=== PATIENT | female | born 1945 | race Caucasian/White ===

== ENCOUNTER 2017-04-03 15:59 | Emergency (ER) | payer OTHER ==
[~2017-04-03] VITALS: Ht 144.8 cm; Wt 68.0 kg
[2017-04-03 17:14] LABS: URINE BILIRUBIN NEGATIVE (Negative); URINE BLOOD NEGATIVE (Negative); URINE CLARITY CLEAR; URINE COLOR YELLOW; URINE GLUCOSE-RANDOM* NEGATIVE (Negative); URINE KETONES TRACE (Negative); URINE LEUKOCYTES NEGATIVE (Negative); URINE NITRITE NEGATIVE (Negative); URINE PROTEIN (DIPSTICK) NEGATIVE (Negative); URINE SPECIFIC GRAVITY 1.025 (1.005-1.035); URINE UROBILINOGEN 0.2 E.U./dl (0.2-1.0)
[2017-04-03 18:48] LABS: ABSOLUTE NEUTROPHILS 5.4 thou/uL (1.4-8.2); BASOPHILS 0.7 % (0.0-2.0); HEMATOCRIT 36.5 % (37.0-47.0); HEMOGLOBIN 12.4 gm/dL (12.0-15.0); LYMPHOCYTES 17.1 % (24.0-44.0); MCH 32.2 pg (26.0-34.0); MCV 94.9 fL (80.0-100.0); MONOCYTES 8.1 % (1.0-8.0); PLATELET COUNT 250 thou/uL (150-400); POLYS 71.1 % (36.0-66.0); RBC 3.85 mil/uL (4.20-5.00); RDW 13.1 % (10.5-14.5); WBC 7.6 thou/uL (4.0-11.0)
[2017-04-03 18:49] VITALS: BP 120/56
[2017-04-03 18:56] LABS: CALCIUM 8.7 mg/dL (8.5-10.1); CREATININE 0.7 mg/dL (0.6-1.0); POTASSIUM 3.6 mmol/L (3.5-5.1)
[2017-04-03 19:02] LABS: ALBUMIN 3.3 g/dL (3.4-5.0); TOTAL BILIRUBIN 0.3 mg/dL (<0.1-1.0)
== END 2017-04-03 20:00 | disposition home or self-care (01) ==
LOC: ER 15:59
PROVIDERS: Nurse Practitioner Family
DX: K59.00 Constipation, unspecified (principal); Z88.5 Allergy status to narcotic agent

== ENCOUNTER 2017-04-17 16:08 | Inpatient (IN) | payer OTHER ==
[~2017-04-17] VITALS: Ht 147.3 cm; Wt 68.0 kg
--- NOTE | ~2017-04-17 | EKG ---
[place] [address] [facility] [place] [address] ELECTROCARDIOGRAM REPORT Name: JF TOWNSEND Room #: 402-P ADM IN M.R.#: [id number] Admission: 04/17/17 Attend Phys: Kevin Gonzalez Discharge: Date of : 49 Report #: [id number] THIS REPORT FOR: //name// [facility] Test Date: 2017-04-24 Test Time: 12:52:53 Pat Name: JF TOWNSEND Department: Room: 402 Gender: F Lab Animal Technician: Wayne BASURTO : 1945 Requested By: Kevin Gonzalez Order Number: [id number] MD: Olvin King Measurements Intervals [place] Rate: 83 P: 7 SD: 146 QRS: -26 QRSD: 94 T: 11 QT: 371 QTc: 436 Interpretive Statements Sinus rhythm Borderline left axis deviation Poor R wave progression No previous ECG available for comparison Electronically Signed On 04-25-2017 14:33:20 CASTING MACHINE SET UP OPERATOR by Olvin iKng [email or web address] <ELECTRONICALLY SIGNED> By: Olvni King MD, [facility] 04/25/17 1433 1251 51 Olvin King MD, FACC /EPI
--- NOTE | ~2017-04-17 | HC ---
[facility] [place] [address] CONSULTATION Name: JF TOWNSEND Room #: 402-P ADM IN M.R.#: [id number] Admission: 04/17/17 Attend Phys: Kevin Gonzalez Discharge: Date of : 49 Report #: [id number] THIS REPORT FOR: //name// CC: Daya Joshi DATE OF SERVICE: 04/23/2017 REASON FOR CONSULTATION: I was asked to evaluate concerning sigmoid diverticulitis with abscess and colovaginal fistula. HISTORY OF PRESENT ILLNESS: The patient was a 71-year-old with previous history of diverticular disease. She has noticed a change in her bowel habits over the last month or so. Had increased abdominal pain. Has noticed drainage from her vagina. She initially thought this was urine, but in retrospect appears to be vaginal drainage. Hospitalized to the Emergency Room where CT scan shows evidence of sigmoid diverticulitis with near total obstruction. She has evidence of a fistula into the vaginal tract. Three small abscesses also identified. We have no microbiology available. PAST MEDICAL HISTORY: Oxygen-dependent COPD, hypothyroidism, previous diverticulitis, colon polyposis, depression, tubal ligation, Kuhn marcus placement. She has had a colonoscopy several years ago. ALLERGIES: MORPHINE. MEDICATIONS: As noted on MAY, now on Zosyn. FAMILY HISTORY: Noncontributory. SOCIAL HISTORY: Past smoker. No significant alcohol intake. Works as a cardiology physician. REVIEW OF SYSTEMS: Denies any cough or sputum production. No nausea or vomiting. Her abdominal pain is markedly improved. She is on 2 liters of oxygen per nasal cannula. No dysuria. She has had minimal stool output. PHYSICAL EXAMINATION: VITAL SIGNS: Afebrile and hemodynamically stable. GENERAL: She is alert and cooperative and pleasant, no acute distress. She was on 2 liters of oxygen per nasal cannula. HEENT: Unremarkable. NECK: Supple. No adenopathy. CHEST: Clear. HEART: Regular. [facility] [address] [place] [address] CONSULTATION Name: JF TOWNSEND Room #: [facility] IN ..#: [id number] Admission: 04/17/17 Attend Phys: Kevin Gonzalez Discharge: Date of : 49 Report #: [id number] ABDOMEN: Mildly protuberant, soft and nontender. No hepatosplenomegaly or mass appreciated. GENITAL AND RECTAL: Not performed. EXTREMITIES: Unremarkable. NEUROLOGIC: Nonfocal. LABORATORY STUDIES: CT scan as noted above with 3 small fluid collections, one 2.6 x 1.9 cm, another 1.3 cm diameter, another 2.5 x 2.5 cm. Rectal contrast study was unable to inject through the obstructing colon. No fistulous tract identified. Vaginal fistulogram identified the fistula to the colon. Sodium 141, potassium 3.5, bicarbonate 29, creatinine 0.8. Liver function test normal. Hemoglobin 11, platelet count 272,000, white count 11.2. Urinalysis was positive for wbc's and bacteria. Blood cultures are pending. Urine culture showed 50,000 normal krishan. IMPRESSION: A 71-year-old with: 1. Sigmoid diverticulitis and subsequent pelvic abscesses along with a colovaginal fistula. 2. Chronic obstructive pulmonary disease, oxygen dependent. RECOMMENDATIONS: We will have a PICC catheter placed. Would continue with Zosyn outpatient infusion for several weeks until we can get the inflammatory reaction down in resolution of the abscesses. Then would plan to come back with colorectal surgery for sigmoid resection and takedown of the colovaginal fistula. <ELECTRONICALLY SIGNED> By: Nhan Montano MD 04/24/17 0927 1213 0153 Nhan Montano MD /nt
--- NOTE | ~2017-04-17 | HC ---
[facility] [place] [address] CONSULTATION Name: JF TOWNSEND Room #: 410-P ADM IN M.R.#: [id number] Admission: 04/17/17 Attend Phys: Mario Martel MD Discharge: Date of : 49 Report #: [id number] THIS REPORT FOR: //name// CC: Daya Joshi DATE OF SERVICE: 04/18/2017 REASON FOR CONSULTATION: Abdominal pain. CONSULTING PHYSICIAN: Mario Martel MD. HISTORY OF PRESENT ILLNESS: This is a 71-year-old female with history of diverticulitis, was admitted by the Emergency Room with left lower quadrant pain and right lower quadrant pain ongoing for the past 3-4 weeks. She rates the pain as 8/10. She was seen for similar complaints in the ER 2 weeks ago. Lab work and abdominal x-ray were done that did not show any evidence of bowel obstruction. She was discharged home with MiraLax for suspected constipation. She has an appointment with a GI physician 4 days from now, but is unaware of which GI doctor. She could not wait that long and hence got admitted to the hospital. She underwent a CT scan of the abdomen and pelvis that showed mural thickening of the proximal to mid sigmoid colon approximately 12 cm length with surrounding inflammation and several perisigmoid abscesses measuring 1.8 x 2.8 cm in size. There are a couple of diverticula in the vicinity, but no clear evidence of diverticulitis. From GI standpoint, she reports she gets her care at [facility]. She says her last colonoscopy was approximately 4 years ago. She was recommended to have a colonoscopy in 2019. She denies any rectal bleeding, but reports loose stools. Her main complaint is left lower quadrant and right lower quadrant pain. It is described as sharp intense pain with radiation to her groin. No weight loss reported. REVIEW OF SYSTEMS: As noted in HPI. Otherwise 10 review of systems obtained and negative. PAST MEDICAL HISTORY: 1. History of diverticulitis. 2. UTI. 3. Tubal ligation. 4. COPD. 5. Hypothyroidism. 6. Depression. [facility] [address] [place] [address] CONSULTATION Name: JF TOWNSEND Room #: 410-P [facility] IN ..#: [id number] Admission: 04/17/17 Attend Phys: Mario Martel MD Discharge: Date of : 49 Report #: [id number] 7. Back surgery. ALLERGIES: Reviewed and noted. MEDICATIONS: Reviewed and noted. SOCIAL HISTORY: Denies tobacco, alcohol or illegal drug use. FAMILY HISTORY: There is no family history of colorectal cancer or GI malignancies, PHYSICAL EXAMINATION: GENERAL: Alert and oriented to time, place and person; cooperative, appears in moderate distress due to pain. VITAL SIGNS: Temperature 99.2 degrees Fahrenheit, heart rate 76, respiration 18, blood pressure 160/71 and oxygen saturation 95% on 2 liters nasal cannula. HEAD: Normocephalic, atraumatic. EYES: Pupils equal, round, reactive to light and accommodation. Extraocular movements intact. No pallor, no icterus. NECK: Supple, midline trachea, thyroid palpable. CARDIOVASCULAR: Regular rate and rhythm. No murmurs. RESPIRATORY: Chest clear to auscultation bilaterally. ABDOMEN: Soft, tender to palpation right lower quadrant suprapubic region and left lower quadrant. Bowel sounds are hypoactive. EXTREMITIES: No cyanosis, clubbing or edema. SKIN: Warm and dry. No rashes present, NEUROLOGIC: Cranial nerves 2-12 grossly intact. No focal deficits. LABORATORY DATA: White count 10.6, hemoglobin 11.8, platelet 298. Normal basic metabolic profile, creatinine of 0.8. Normal liver function tests. Lipase is normal at 63. CT abdomen and pelvis results noted above in HPI. DIAGNOSTIC IMPRESSION AND PLAN: 1. Colitis with abscess. Suspicious for diverticulitis, complicated by an abscess (history of diverticulitis in 2008). Agree with antibiotic treatment in the form of Zosyn. Await surgical consultation to decide whether the patient needs conservative approach with antibiotic treatment and assess for response of these small abscesses with repeat CT versus aggressive approach with IR-guided drainage or surgical drainage. Continue antibiotic treatment in the meantime. She warrants a colonoscopy as an outpatient in 6-8 weeks from now. 2. Sigmoid abscess. Again, I think this is likely secondary to diverticulitis. Antibiotic treatment as above. Await surgical input. [address] [address] CONSULTATION Name: KRISTIANJF J Room #: 410-P [facility] IN M.R.#: [id number] Admission: 04/17/17 Attend Phys: Mario Martel MD Discharge: Date of : 49 Report #: [id number] Thank you for allowing me to participate in the care of the patient. <ELECTRONICALLY SIGNED> By: Giancarlo Pereyra MD 04/19/17 1046 1555 0404 Giancarlo Pereyra MD /nt
--- NOTE | ~2017-04-17 | HC ---
[facility] [place] [address] CONSULTATION Name: JF TOWNSEND Room #: 410-P ADM IN M.R.#: [id number] Admission: 04/17/17 Attend Phys: Mario Martel MD Discharge: Date of : 49 Report #: [id number] THIS REPORT FOR: //name// CC: Daya Joshi MD DATE OF SERVICE: 04/18/2017 REASON FOR CONSULTATION: Abdominal pain, intra-abdominal abscess. HISTORY OF PRESENT ILLNESS: This is a friendly 71-year-old female patient who was seen in the [place] Emergency Room with lower abdominal pain, fever, chills, nausea and vomiting. She has had difficulty with abdominal pain, mostly in her left lower quadrant over the past 3-4 weeks. She initially thought this was secondary to constipation and was actually seen in the Emergency Room 2 weeks ago, but dismissed home. Her primary care physician had recommended that she come to the Emergency Room due to thin caliber stools. The patient took MiraLax and has had no significant change in her pain until being seen yesterday with worsened pain. She has vomited several times, but has also been passing flatus. Her last bowel movement was last night. She does note possible fecaluria, although she has a difficult time ascertaining this. She does pass urine as well as stool currently. She denies pneumaturia. She is uncertain of when her last colonoscopy was. However, she was told her next colonoscopy is to take place in 2019. She does have a history of polyps and was admitted with diverticulitis [address] in the Emergency Room showed marked mural thickening of the proximal to mid sigmoid colon measuring 12 cm in length with surrounding inflammatory changes and perisigmoid abscesses measuring up to 1.8 x 2.8 cm. Diverticula were also seen within this loop of colon; however, they did not appear to be particularly inflamed. The abscesses were not felt to be amenable to percutaneous drainage as they were small and closely associated with bowel. She also had leukocytosis. I have been asked to see the patient for further evaluation and treatment. PAST MEDICAL HISTORY: Significant for COPD with use of home oxygen, hypothyroidism, previous diverticulitis, colonic polyps and depression. PAST SURGICAL HISTORY: Kuhn rods placed at 14 years old, bilateral tubal ligation. MEDICATIONS: Include fluticasone/vilanterol, Synthroid and Caltrate (please see electronic medical record for dosing details). She has been placed on Zosyn and is receiving p.r.n. medications as well. ALLERGIES: MORPHINE. [address] [address] CONSULTATION Name: RASHIDBENJF Bobby Room #: 410-P [facility] IN M.R.#: [id number] Admission: 04/17/17 Attend Phys: Mario Martel MD Discharge: Date of : 49 Report #: [id number] FAMILY HISTORY: Reviewed and noncontributory to this hospitalization. Her father did have heart disease. SOCIAL HISTORY: The patient denies use of illicit drugs. She quit smoking in 2008. She drinks alcohol socially. REVIEW OF SYSTEMS: As per history of present illness. In addition, GENERAL: The patient reports fever and chills, but denies this now. Denies unintentional weight loss. HEENT: Denies changes in taste, vision, hearing, or smell. RESPIRATORY: Denies worsening shortness of breath, has a history of COPD. CARDIOVASCULAR: Denies chest pain or palpitations. GASTROINTESTINAL: As per history of present illness. GENITOURINARY: Denies dysuria, urgency, increased urinary frequency or hematuria. She is uncertain if she is passing stool per urine. Denies pneumaturia. MUSCULOSKELETAL: Denies myalgia or arthralgia. Has a history of Kuhn rods in her back. NEUROLOGIC: Denies headaches, numbness or tingling. PSYCHIATRIC: Denies suicidal ideations or anxiety, has a history of depression. SKIN AND INTEGUMENTARY: Denies new skin lesions, rashes or moles. ENDOCRINE: Denies polydipsia, polyuria, heat or cold intolerance. HEMATOLOGIC: Denies easy bleeding, bruising or anemia. All other review of systems is negative. PHYSICAL EXAMINATION: VITAL SIGNS: Temperature 99.2, blood pressure 122/71, pulse 76, respirations 18. GENERAL: This is an obese 71-year-old female patient in no acute distress. HEENT: Atraumatic, normocephalic with moist mucosal membranes. Oropharynx is clear. She has no scleral icterus. NECK: Supple, no appreciable lymphadenopathy. Trachea is midline. CHEST: Clear bilaterally. CARDIOVASCULAR: Regular rate and rhythm. ABDOMEN: Soft and mildly tender to palpation in the lower abdomen/pelvis with no rebound or guarding. No palpable masses, no appreciable hernias. GENITOURINARY: Normal external female genitalia. RECTAL: Shows chronic external hemorrhoids. No anal fissures or fistulae. No palpable masses. No significant tenderness to palpation. EXTREMITIES: No clubbing or cyanosis. NEUROLOGIC: Cranial nerves 2-12 grossly intact. PSYCHIATRIC: Normal mood and affect. SKIN AND INTEGUMENTARY: No acute inflammatory changes, rashes or lesions are present. LABORATORY DATA: CBC this morning shows a white blood cell count of 10.6 (14.8 [facility] [place] [address] CONSULTATION Name: JF TOWNSEND Room #: 410-P ADM IN M.R.#: [id number] Admission: 04/17/17 Attend Phys: Mario Martel MD Discharge: Date of : 49 Report #: [id number] at admission last night), hemoglobin 11.8, hematocrit 35.0 and platelets 298. Electrolytes show sodium of 141, potassium 3.5, chloride 103, CO2 of 29, BUN 13, creatinine 0.8 and glucose 97. Liver function tests from last night were normal. Lipase was normal. Albumin was low at 3.1. Urinalysis showed trace protein, 3+ blood, 1+ ketones, 2+ leukocyte esterase, negative nitrites and many urine bacteria. RADIOLOGIC STUDIES: CT abdomen and pelvis findings are as noted above. The patient had mild hydroureteronephrosis to the level of the inflamed proximal sigmoid colon. No free intraperitoneal air was seen. Other findings are as noted above. IMPRESSION AND PLAN: This is a 71-year-old female patient with a history of chronic obstructive pulmonary disease, hypothyroidism, diverticulitis and colonic polyps who has colitis of the sigmoid colon (12 cm long segment) with diverticula present; however, the diverticula are not significantly inflamed. This is felt to represent colitis, which may be infectious, inflammatory, or secondary to ischemia, but may also represent diverticulitis. 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 She does have a urinary tract infection as well. We discussed the differential diagnoses of her colitis. My recommendation is to continue IV antibiotics and repeat her CT scan in the next couple of days with oral contrast to be given the day prior to the study to allow the contrast to pass to the sigmoid colon. She may also require a urology consult for cystoscopy. The patient expressed understanding of the plan. I will follow along with serial abdominal exams as well as labs and x-rays as necessary. I sincerely appreciate the opportunity to participate in the care of this patient and will leave further recommendations and orders in the electronic medical record as appropriate. <ELECTRONICALLY SIGNED> By: Arnol Joshi MD, FACS 04/19/17 0856 1045 2135 Arnol Joshi MD, FACS /nt
[2017-04-17 18:51] VITALS: BP 148/83
[2017-04-17 19:46] LABS: ABSOLUTE NEUTROPHILS 12.8 thou/uL (1.4-8.2); BASOPHILS 0.3 % (0.0-2.0); EOSINOPHILS 0.2 % (0.0-3.0); HEMATOCRIT 36.8 % (37.0-47.0); HEMOGLOBIN 12.6 gm/dL (12.0-15.0); MCH 31.9 pg (26.0-34.0); MCHC 34.1 g/dL (28.0-37.0); MCV 93.5 fL (80.0-100.0); MONOCYTES 6.1 % (1.0-8.0); PLATELET COUNT 327 thou/uL (150-400); POLYS 86.4 % (36.0-66.0); RBC 3.93 mil/uL (4.20-5.00); RDW 12.9 % (10.5-14.5); WBC 14.8 thou/uL (4.0-11.0)
[2017-04-17 20:05] LABS: CALCIUM 9.4 mg/dL (8.5-10.1); CREATININE 0.6 mg/dL (0.6-1.0); POTASSIUM 3.6 mmol/L (3.5-5.1)
[2017-04-17 20:11] LABS: URINE BLOOD 3+ (Negative); URINE CLARITY SL CLOUDY; URINE COLOR YELLOW; URINE GLUCOSE-RANDOM* NEGATIVE (Negative); URINE KETONES 1+ (Negative); URINE NITRITE-REFLEX NEGATIVE (Negative); URINE PROTEIN (DIPSTICK) TRACE (Negative); URINE SPECIFIC GRAVITY >= 1.030 (1.005-1.035); URINE UROBILINOGEN 0.2 E.U./dl (0.2-1.0)
[2017-04-17 20:12] LABS: URINE LEUKOCYTES-REFLEX 2+ (Negative)
[2017-04-17 20:12] LABS: ALBUMIN 3.1 g/dL (3.4-5.0); TOTAL BILIRUBIN 0.4 mg/dL (<0.1-1.0); TOTAL PROTEIN 7.5 g/dL (6.4-8.2)
[2017-04-17 20:13] LABS: ICTOTEST (BILI CONFIRMATORY) Negative (Negative); URINE BILIRUBIN NEGATIVE (Negative)
[2017-04-17 20:34] LABS: BACTERIA-REFLEX >30 Many /HPF (None Seen); CASTS None Seen /LPF (None Seen); CRYSTALS None Seen /LPF (None Seen); SQUAMOUS 0-3 Few /LPF (0-3); URINE WBC-REFLEX >25 Many /HPF (0-5)
[2017-04-17 22:11] VITALS: BP 132/52
[2017-04-17] MEDS ORDERED: BREO ELLIPTA 11 EACH IH (23:57)
[2017-04-17] MEDS ORDERED: LEVOTHYROXINE75 MCG PO (23:58)
[2017-04-18] VITALS: BP 120/58
[2017-04-18] MEDS ORDERED: CALCIUM 600 +1 EAC1 PO
[2017-04-18 04:00] VITALS: BP 125/65
[2017-04-18 04:18] LABS: HEMOGLOBIN 11.8 gm/dL (12.0-15.0); MCH 31.7 pg (26.0-34.0); MCHC 33.7 g/dL (28.0-37.0); RBC 3.72 mil/uL (4.20-5.00); WBC 10.6 thou/uL (4.0-11.0)
[2017-04-18 04:27] LABS: CALCIUM 8.8 mg/dL (8.5-10.1); CREATININE 0.8 mg/dL (0.6-1.0); POTASSIUM 3.5 mmol/L (3.5-5.1)
[2017-04-18 08:00] VITALS: BP 122/71
[2017-04-18 16:16] VITALS: BP 117/56
[2017-04-18 20:00] VITALS: BP 120/57
[2017-04-18] MEDS ORDERED: LEXAPRO 10 MG T10 M1 PO (21:20)
[2017-04-19 04:29] VITALS: BP 136/66
[2017-04-19 06:14] LABS: HEMATOCRIT 33.2 % (37.0-47.0); MCH 30.9 pg (26.0-34.0); MCHC 33.1 g/dL (28.0-37.0); MCV 93.6 fL (80.0-100.0); RBC 3.55 mil/uL (4.20-5.00); WBC 11.2 thou/uL (4.0-11.0)
[2017-04-19 09:00] VITALS: BP 134/67
[2017-04-19 16:25] VITALS: BP 118/70
[2017-04-19 20:24] VITALS: BP 115/90
[2017-04-20 04:00] VITALS: BP 134/60
[2017-04-20 09:00] VITALS: BP 150/77
[2017-04-20 16:52] VITALS: BP 129/66
[2017-04-20 21:30] VITALS: BP 126/54
[2017-04-21 05:25] VITALS: BP 144/58
[2017-04-21 08:48] VITALS: BP 141/45
[2017-04-21 21:00] VITALS: BP 144/60
[2017-04-22 04:00] VITALS: BP 134/65
[2017-04-22 08:27] VITALS: BP 149/53
[2017-04-22 16:17] VITALS: BP 131/64
[2017-04-22 19:36] VITALS: BP 117/80
[2017-04-23] VITALS: BP 147/72
[2017-04-23 03:56] VITALS: BP 151/84
[2017-04-23 08:39] VITALS: BP 146/72
[2017-04-23 16:30] VITALS: BP 121/64
[2017-04-23 20:00] VITALS: BP 147/64
[2017-04-24 04:00] VITALS: BP 118/67
[2017-04-24 07:12] VITALS: BP 121/85
[2017-04-24] MEDS ORDERED: HYDROCODON-ACE1 EAC7 PO (09:17)
[2017-04-24] MEDS ORDERED: COLACE100 MG PO ×2 (09:28→11:17)
[2017-04-24] MEDS ORDERED: HYDROCODONE-AP1 EAC6 PO ×2 (09:28→11:17)
[2017-04-24] MEDS ORDERED: ZOSYN 3.373.375 GM/1 IV (09:28)
[2017-04-24 09:52] VITALS: BP 121/85
[2017-04-24 09:53] VITALS: BP 121/85
[2017-04-24] MEDS ORDERED: ZOSYN 4.54.5 GM/101 IV (11:17)
[2017-04-24 13:55] VITALS: BP 121/85
[2017-04-24 20:05] VITALS: BP 134/74
[2017-04-25 04:12] VITALS: BP 125/69
[2017-04-25 08:33] VITALS: BP 119/71
== END 2017-04-25 19:35 | disposition home health service (06) | DRG 871 ==
LOC: ER 16:08 → EROBS 21:34 → 4N 21:34
PROVIDERS: Hospitalist; Nurse Practitioner Family; Physician Assistant
PROC: 02HV33Z Insertion of Infusion Device into Superior Vena Cava, Percutaneous Approach (ICD-10-PCS; principal; 2017-04-23)
DX: A41.9 Sepsis, unspecified organism (principal); E43 Unspecified severe protein-calorie malnutrition; K57.20 Diverticulitis of large intestine with perforation and abscess without bleeding; N39.0 Urinary tract infection, site not specified; N32.1 Vesicointestinal fistula; K59.00 Constipation, unspecified; E03.9 Hypothyroidism, unspecified; J44.9 Chronic obstructive pulmonary disease, unspecified; F32.9 Major depressive disorder, single episode, unspecified; N73.9 Female pelvic inflammatory disease, unspecified; K52.9 Noninfective gastroenteritis and colitis, unspecified; Z88.8 Allergy status to other drugs, medicaments and biological substances; Z79.899 Other long term (current) drug therapy; Z87.891 Personal history of nicotine dependence; Z99.81 Dependence on supplemental oxygen; Z80.0 Family history of malignant neoplasm of digestive organs; Z68.31 Body mass index [BMI] 31.0-31.9, adult
CPT/HCPCS: 10790; 27000